=== PATIENT | male | born 1975 | race African-American/Black ===

== ENCOUNTER 2022-06-23 05:23 | Emergency (ER) | payer OTHER ==
[~2022-06-23] VITALS: Ht 172.7 cm; Wt 90.0 kg
[2022-06-23] MEDS ORDERED: LIDOCAINE 1% 20 ML VIAL SQ ONE (08:00)
[2022-06-23] MEDS ORDERED: PERTUSS(ACELL),DIPH,TET VAC/PF 0.5 ML SYRINGE IM. ONE (08:00)
[2022-06-23] MEDS ORDERED: CEPH-558 PO (09:37)
[2022-06-23 09:46] VITALS: BP 131/78
== END 2022-06-23 09:48 | disposition home or self-care (01) ==
LOC: EMS 05:26
DX: S61.216A Laceration without foreign body of right little finger without damage to nail, initial encounter (principal); W45.0XXA Nail entering through skin, initial encounter; Y93.89 Activity, other specified; Y92.89 Other specified places as the place of occurrence of the external cause; Y99.8 Other external cause status
CPT/HCPCS: 99283; 90715; 90471; 12002; J3490